=== PATIENT | female | born 1940 | race Asian ===

== ENCOUNTER 2024-04-08 16:59 | Inpatient (IN) | payer MEDICARE, OTHER ==
[2024-04-08 18:03] LABS: BASOPHILS PERCENT AUTO 0.4 % (0.0-1.0); EOSINOPHILS PERCENT AUTO 0.5 % (0.0-6.0); HEMATOCRIT 23.3 % (37.0-47.0); IMMATURE GRAN ABSOLUTE AUTO 0.03 K/mm3 (0.00-0.05); IMMATURE GRAN PERCENT AUTO 0.5 % (0.0-0.4); LYMPHOCYTES ABSOLUTE AUTO 1.1 K/mm3 (1.0-4.8); LYMPHOCYTES PERCENT AUTO 20.7 % (24.0-44.0); MEAN CORPUSCULAR HGB CONC 30.9 g/dl (32.0-36.0); MEAN CORPUSCULAR VOLUME 87.3 fl (83.0-99.0); MEAN PLATELET VOLUME 10.6 fl (9.4-12.3); MONOCYTES ABSOLUTE AUTO 0.4 K/mm3 (0.0-0.8); MONOCYTES PERCENT AUTO 6.5 % (0.0-8.0); NEUTROPHILS ABSOLUTE AUTO 3.9 K/mm3 (1.8-7.7); NEUTROPHILS PERCENT AUTO 71.4 % (41.0-71.0); PLATELET COUNT,PLT 222 K/mm3 (150-400); RED BLOOD CELL COUNT 2.67 M/mm3 (4.10-5.30); WHITE BLOOD CELL COUNT,WBC 5.52 K/mm3 (3.9-11.3)
[2024-04-08 18:27] LABS: HEMOGLOBIN 7.2 gm/dl (12.0-16.0)
[2024-04-08 18:32] LABS: ALBUMIN 3.1 g/dl (3.4-5.0); ANION GAP 11.9 (5-15); BILIRUBIN TOTAL 0.7 mg/dL (0.2-1.0); C-REACTIVE PROTEIN 0.32 mg/dL (<0.30); CALCIUM 8.7 mg/dL (8.5-10.1); EST CRCL DRUG DOSING (CG) 27.6 mL/min; POTASSIUM,K 3.9 mEq/L (3.5-5.1); PROTEIN TOTAL,TP 6.1 g/dl (6.4-8.2)
[2024-04-08] MEDS: Sodium Chloride 0.9% 1,000 ML IV ONE (19:00)
[2024-04-08] MEDS: Pantoprazole 40 MG Vial IVPUSH ONE (19:01)
[2024-04-08] MEDS: Iopamidol 612 MG/ML 100 ML Bottle IVPUSH ONE (19:29)
[2024-04-08] MEDS ORDERED: Acetaminophen 325 MG Tab PO PRN (20:25)
[2024-04-08] MEDS ORDERED: Ondansetron 4 MG Tab.DIS PO PRN (20:25)
[2024-04-08] MEDS: hydrALAZINE 20 MG/ML SDV IVPUSH PRN (22:08)
[2024-04-09] MEDS: Lactated Ringers 1,000 ML IV SCH (01:00)
[2024-04-09 05:49] LABS: HEMATOCRIT 32.6 % (37.0-47.0); MEAN CORPUSCULAR HEMOGLOBIN 27.5 pg (28.0-32.0); MEAN CORPUSCULAR HGB CONC 32.5 g/dl (32.0-36.0); MEAN CORPUSCULAR VOLUME 84.7 fl (83.0-99.0); PLATELET COUNT,PLT 203 K/mm3 (150-400); RED BLOOD CELL COUNT 3.85 M/mm3 (4.10-5.30); WHITE BLOOD CELL COUNT,WBC 6.26 K/mm3 (3.9-11.3)
[2024-04-09 05:55] LABS: HEMOGLOBIN 10.6 gm/dl (12.0-16.0)
[2024-04-09] MEDS: Pantoprazole 40 MG Vial IV SCH (08:16)
[2024-04-09] MEDS ORDERED: Lidocaine 1% PF 2 ML SDV ONE ×2 (10:19)
[2024-04-09] MEDS ORDERED: Lidocaine 1% 2 ML ONE (10:19)
[2024-04-09] MEDS ORDERED: Lidocaine 1% 4 ML ONE (10:19)
[2024-04-09] MEDS ORDERED: Propofol 200 MG/20 ML SDV ONE (10:19)
[2024-04-09] MEDS ORDERED: Lactated Ringers 1,000 ML ONE (10:54)
[2024-04-10 04:49] LABS: HEMATOCRIT 32.6 % (37.0-47.0); HEMOGLOBIN 10.5 gm/dl (12.0-16.0); MEAN CORPUSCULAR HEMOGLOBIN 27.6 pg (28.0-32.0); MEAN CORPUSCULAR HGB CONC 32.2 g/dl (32.0-36.0); MEAN CORPUSCULAR VOLUME 85.8 fl (83.0-99.0); MEAN PLATELET VOLUME 10.9 fl (9.4-12.3); PLATELET COUNT,PLT 184 K/mm3 (150-400)
[2024-04-10 12:56] VITALS: BP 171/44; PULSE 69
== END 2024-04-10 12:49 | disposition home or self-care (01) | DRG 811 ==
LOC: JD.ED 16:59 → JD.MS 20:25
PROVIDERS: ADMIT Surgery; ATTEND Surgery
PROC: 30233N1 Transfusion of Nonautologous Red Blood Cells into Peripheral Vein, Percutaneous Approach (ICD-10-PCS; principal; 2024-04-08)
PROC: 0DJ08ZZ Inspection of Upper Intestinal Tract, Via Natural or Artificial Opening Endoscopic (ICD-10-PCS; 2024-04-09)
DX: K92.2 Gastrointestinal hemorrhage, unspecified (principal); D64.9 Anemia, unspecified; K29.71 Gastritis, unspecified, with bleeding; I10 Essential (primary) hypertension; K59.09 Other constipation; H54.7 Unspecified visual loss; K44.9 Diaphragmatic hernia without obstruction or gangrene; K21.9 Gastro-esophageal reflux disease without esophagitis; Z90.710 Acquired absence of both cervix and uterus
CPT/HCPCS: 36415; 74177; 80053; 83690; 83880; 85025; 86140; 86850; 86900; 86901; 86922; 96361; 96374; 99285; J2470; J7030; Q9967; 36430; 85027; 88305; 94760; J0360; J2704; J3490; J7120; P9016